=== PATIENT | male | born 1945 | race African-American/Black ===

== ENCOUNTER → 2017-05-16 | Day surgery (SDC) | payer BC, MEDICARE ==
[~2017-05-16] MED LIST: CHONDR SU A NA/HYALUR INTRAOC KIT (SURGICARE) ONE; EPINEPHRINE INJ/PF 1 MG/1 ML AMPULE ONE; FENTANYL CITRATE INJ/PF 100 MCG/2 ML AMPUL ONE; KETOROLAC TROMETHAMINE 0.45% 4 DROP/0.4 ML DROPERETTE OS PRN; LIDOCAINE 1% INJ-PF (10 MG/ML) 30 ML SDV ONE; MIDAZOLAM 2 MG/2 ML INJ ONE
[2017-05-16] MEDS: TROPICAMIDE 1% OPH SOLN 3 ML OS PRN ×3 (11:23→11:43)
[2017-05-16] MEDS: BESIFLOXACIN HCL 0.6% OPH SUSP 5 ML BOTTLE OS PRN ×3 (11:23→12:29)
[2017-05-16] MEDS: CYCLOPENTOLATE 0.2%/PHENYLEPHRINE 1% OPH SOLN 2 ML OS PRN ×3 (11:23→11:43)
[2017-05-16] MEDS: TETRACAINE HCL 0.5% OPH SOLN 2 ML OS PRN ×3 (11:24→12:07)
--- NOTE | 2017-05-16 21:44 | [facility] OPERATIVE REPORT E ---
[facility] Operative Report NAME: MARIHCUY SANTOS AGE: 72Y DATE OF SURGERY: 05/16/2017 ROOM: PREOPERATIVE DIAGNOSIS: CATARACT, LEFT EYE. POSTOPERATIVE DIAGNOSIS: CATARACT, LEFT EYE. OPERATION: Cataract extraction with intraocular lens implant of the left eye. SURGEON: CHANDA GOMEZ M.D. ANESTHESIA: Topical. PROCEDURE: After obtaining appropriate consent, the patient's left eye was prepped and draped in sterile fashion as well as the surgeon in a sterile manner and cataract surgery was started. First a paracentesis blade was used to make a small side-port incision. Viscoelastic was used to inflate the anterior chamber. Next a 2.4 mm incision was made with the paracentesis blade. A continuous capsulorrhexis incision was made using a cystotome and Utrata forceps. Following this hydrodissection was carried out to make the lens fully loose and mobile and it was rotated 90 degrees. Following this, a giudjd-ywf-llkvhqw technique was used to phacoemulsify the lens with a CDE of 7.37. The remaining cortex was removed with irrigation/aspiration. Provisc was instilled into the capsular bag to inflate the bag. A SN60WF, 22.0-diopter lens was placed. The remaining viscoelastic material was removed with irrigation/aspiration. Following this, a 10-0 nylon suture was used to close the incision and it was found to be watertight. Vigamox was instilled in the eye and a protective shield was placed over the eye. The patient returned to the postoperative recovery in stable condition. DICTATING PHYSICIAN: CHANDA GOMEZ M.D. [id number] PHY#: [id number] 2005 ID: [id number] JOB#: [id number] ACCT: [id number] cc:CHANDA GOMEZ M.D. >
--- NOTE | 2017-05-16 21:49 | [facility] DISCHARGE SUMMARY E ---
[facility] Discharge Summary NAME: MARICHUY SANTOS AGE: 72Y ADMITTED: 05/16/2017 DISCHARGED: 05/16/2017 DIAGNOSIS: CATARACT, LEFT EYE. HOSPITAL COURSE: This is a 71-year-old male who underwent cataract extraction of the left eye. He underwent surgery because he was having difficulty seeing small print. DISCHARGE INSTRUCTIONS: He should be on a regular diet. No bending at his waist. No heavy lifting. He should be using Besivance, Ilevro and Durezol at 3 p.m. and 8 p.m. and sleeping with a rigid shield, and I will see him for his 1-day postoperative tomorrow. DICTATING PHYSICIAN: CHANDA GOMEZ M.D. [id number] PHY#: [id number] 2005 ID: [id number] JOB#: [id number] ACCT: [id number] cc:CHANDA GOMEZ M.D. >
== END ==
LOC: SC 06:58
PROVIDERS: ATTEND Internal Medicine
PROC: 08RK3JZ Replacement of Left Lens with Synthetic Substitute, Percutaneous Approach (ICD-10-PCS; principal; 2017-05-16 12:30)
DX: H25.12 Age-related nuclear cataract, left eye (principal); I10 Essential (primary) hypertension; Z79.899 Other long term (current) drug therapy
CPT/HCPCS: 66984; V2632; J2250; J3490 ×2; A9270; J0171; 142; J3010

== ENCOUNTER → 2019-10-30 | Outpatient (CLI) | payer MEDICARE ==
--- NOTE | 2019-10-30 11:22 | RADIOLOGY REPORT (SQ) ---
EXAM DESCRIPTION: FOOT RIGHT COMPLETE IMAGES COMPLETED DATE/TIME: 10/30/2019 10:56 am REASON FOR STUDY: RIGHT FOOT SWOLLEN AND TENDER M25.474 EFFUSION, RIGHT FOOT COMPARISON: None. NUMBER OF VIEWS: Three views. TECHNIQUE: AP, lateral and oblique radiographic images acquired of the right foot. LIMITATIONS: None. FINDINGS: MINERALIZATION: Normal. BONES: No acute fracture or dislocation. No worrisome bone lesions. JOINTS: No effusions. SOFT TISSUES: No soft tissue swelling. No foreign body. OTHER: There are small calcaneal spurs. IMPRESSION: NEGATIVE STUDY OF THE RIGHT FOOT. NO RADIOGRAPHIC EVIDENCE OF ACUTE INJURY. TECHNICAL DOCUMENTATION: JOB ID: [id number] 2010 [employer]- All Rights Reserved Reading location - IP/workstation name: [email or web address]
== END ==
LOC: OD 10:45
PROVIDERS: ATTEND Family Medicine
DX: M25.474 Effusion, right foot (principal)